=== PATIENT | male | born 1990 | race Caucasian/White ===

== ENCOUNTER → 2022-09-17 08:02 | Outpatient (BNVA) | payer BC, SELFPAY | PROVIDERS: Visit Provider Internal Medicine ==

== ENCOUNTER 2022-10-24 05:58 | Outpatient (REF) | payer BC, SELFPAY ==
--- NOTE | ~2022-10-24 | FL_ITS ---
EXAMINATION: XR FLUOROSCOPY WITH IMAGES CLINICAL INFORMATION: Spondylosis without myelopathy or radiculopathy, cervical region. COMPARISON: None available. TECHNIQUE: Fluoroscopy Supervised By: Dr. Dial. Fluoroscopy Time: 0.4 minutes. Cumulative Dose: 1.77 mGy. DAP: 0.172 Gycm2. Images: 4. FINDINGS: Images demonstrate needle placement and contrast injection adjacent to the bilateral lateral C3-C4 and C5 vertebrae FL/FL guidance in treatment room IMPRESSION: Fluoroscopy guidance for pain management procedure
== END 2022-10-24 05:59 | disposition home or self-care (01) ==
LOC: CF 05:58
PROVIDERS: Visit Provider Internal Medicine
DX: M47.812 Spondylosis without myelopathy or radiculopathy, cervical region (principal)
CPT/HCPCS: 64490; 64491; J2795; Q9965

== ENCOUNTER → 2022-11-09 08:38 | Outpatient (BNVA) | payer BC, SELFPAY | PROVIDERS: Visit Provider Internal Medicine ==